=== PATIENT | male | born 1960 ===

== ENCOUNTER 2019-11-28 12:57 | Outpatient (CLI) | payer MEDICAID ==
--- NOTE | 2019-11-28 18:15 | Consultation ---
DATE OF CONSULTATION: 11/28/2019 CONSULTING PHYSICIAN: Rafi French M.D. CHIEF COMPLAINT: Referral for screening colonoscopy. PAST MEDICAL HISTORY: 1. BPH. 2. Coronary artery disease. 3. Diabetes. 4. Hypertension. PAST SURGICAL HISTORY: Prostate surgery. MEDICATIONS: Metformin, aspirin, cholesterol medication. FAMILY HISTORY: Noncontributory. SOCIAL HISTORY: The patient denies any tobacco, alcohol, or drug abuse. ALLERGIES: No known drug allergies. REVIEW OF SYSTEMS: A 10-point review of systems was performed and pertinent positives in HPI. PHYSICAL EXAMINATION: GENERAL: Well-developed male, in no acute distress. HEENT: Normocephalic, atraumatic. Sclerae anicteric. NECK: Supple. No evidence of obvious lymphadenopathy. CARDIOVASCULAR: Regular rate and rhythm. Plus S1 and S2. LUNGS: Clear to auscultation bilaterally. ABDOMEN: Positive bowel sounds. Soft and nontender. No rebound. No guarding. No peritoneal sign. EXTREMITIES: No cyanosis, no clubbing, no edema. ASSESSMENT AND PLAN: This is a 59-year-old male who was referred to us for screening colonoscopy evaluation. The risks and benefits of procedure were explained to the patient. Prep was given. We will plan to do colonoscopy when the authorization is obtained. Rafi French M.D. DR: KAYDEN JOB#: [id number] CC:
== END 2019-11-28 14:57 | disposition home or self-care (01) ==
LOC: PAN 12:57
DX: N40.0 Benign prostatic hyperplasia without lower urinary tract symptoms (principal); I11.9 Hypertensive heart disease without heart failure; I25.10 Atherosclerotic heart disease of native coronary artery without angina pectoris; E11.9 Type 2 diabetes mellitus without complications; Z79.82 Long term (current) use of aspirin; Z79.84 Long term (current) use of oral hypoglycemic drugs
CPT/HCPCS: G0463